=== PATIENT | male | born 1960 | race Caucasian/White ===

== ENCOUNTER 2023-10-03 12:06 | Observation (INO) ==
[2023-10-03] MEDS: NS 0.9% 1000 ml BAG 1,000 ML IV ONE (12:24)
[2023-10-03 12:40] LABS: ABS Lymphocytes 1.3 10^3/uL (1.0-4.8); ABS Monocytes 0.5 10^3/uL (0.0-1.1); ABS Neutrophils 2.6 10^3/uL (1.5-7.6); Eosinophil % 0.6 %; Hematocrit 41.4 % (38-53); Hemoglobin 14.2 g/dL (13.2-16.3); Lymphocyte % 29.6 %; Mean Corpuscular Hemoglobin 31.8 pg (27-33); Mean Corpuscular Hgb Conc 34.3 g/dL (31-36); Mean Corpuscular Volume 92.6 fL (80-97); Mean Platelet Volume 7.7 fL (7.5-11.2); Nucleated Red Blood Cells % 0.1 %/100WBC (0.0-0.8); Platelet Count 166 10^3/uL (150-450); Red Blood Count 4.47 10^6/uL (4.06-5.63); Red Cell Distribution Width 13.1 % (12-17); White Blood Count 4.5 10^3/uL (3.6-10.2)
[2023-10-03 12:49] LABS: INR 1.02 (0.83-1.13)
[2023-10-03 13:03] LABS: ALT 46 U/L (7-52); AST 40 U/L (13-39); Albumin 4.3 g/dL (3.2-5.2); Albumin/Globulin Ratio 1.6 (1-3); Alkaline Phosphatase 72 U/L (35-149); Anion Gap 9 mmol/L (2-16); Blood Urea Nitrogen 19 mg/dL (6-24); CO2 Carbon Dioxide 25 mmol/L (22-32); Calcium 9.4 mg/dL (8.6-10.3); Chloride 102 mmol/L (101-111); Creatinine, Serum 1.08 mg/dL (0.67-1.17); Globulin 2.7 g/dL (2-4); Glucose 103 mg/dL (70-100); High Sens Troponin Baseline 5 pg/mL (<20); Magnesium 2.1 mg/dL (1.9-2.7); Potassium 4.3 mmol/L (3.5-5.0); Sodium 136 mmol/L (135-145); Total Bilirubin 0.5 mg/dL (0.2-1.0); eGFR CKD-EPI 78.1 (>60)
[2023-10-03 13:12] LABS: TSH Ultra Thyroid Stim Horm 2.47 mcIU/mL (0.34-5.60)
[2023-10-03 13:43] LABS: Alcohol, S < 13 mg/dL (<13)
[2023-10-03 13:55] LABS: High Sensitivity Troponin 1 Hr 5 pg/mL (<20)
[2023-10-03] MEDS: Iohexol 350 (CONTRAST) 500 ML MDV IV ONE (14:01)
[2023-10-03] MEDS ORDERED: Senna TAB 8.6 mg TAB PO PRN (15:24)
[2023-10-03] MEDS ORDERED: Polyethylene Glycol 3350 17 GM PACKET PO PRN (15:24)
[2023-10-03] MEDS: cefTRIAXone 1 gm/50 mL D5W 1 GM/50 ML BAG IV SCH (17:29)
[2023-10-04 06:57] LABS: Calcium 9.3 mg/dL (8.6-10.3); Creatinine, Serum 0.76 mg/dL (0.67-1.17); Magnesium 2.3 mg/dL (1.9-2.7); Potassium 4.1 mmol/L (3.5-5.0); eGFR CKD-EPI 102.3 (>60)
[2023-10-04] MEDS ORDERED: Sulfur Hexaflouride MICROSPHR 25 MG VIAL ONE (09:42)
[2023-10-04] MEDS: Sulfur Hexaflouride MICROSPHR 25 MG VIAL IV ONE (09:45)
[2023-10-04 17:16] VITALS: BP 145/95
== END 2023-10-04 17:45 | disposition home or self-care (01) ==
LOC: ED 12:06 → EDHOLD 12:06 → MEDTELE 16:40
PROVIDERS: ADMIT Hospitalist; ATTEND Hospitalist